=== PATIENT | female | born 1940 | race American Indian/Alaskan Native ===

== ENCOUNTER 2019-06-18 10:57 | Emergency (ER) | payer MEDICARE ==
[2019-06-18] MEDS ORDERED: HALOPERIDOL LACTATE 5 MG/1 ML INJ IM PRN (12:35)
[2019-06-18] MEDS ORDERED: LORazepam 2 MG/ML VIAL IM PRN (12:35)
--- NOTE | 2019-06-18 12:36 | Emergency Department Report ---
<TAMI DODGE - Last Filed: 06/18/19 19:35> ED General Adult HPI - General Chief complaint: Psych Stated complaint: AMS Time Seen by Provider: 06/18/19 12:05 - Related Data Home Medications Medication Instructions Recorded Confirmed Last Taken AtorvaSTATin [Lipitor] 20 mg PO QHS 06/18/19 06/18/19 Unknown Potassium Bicarbonate/Cit AC 20 meq PO QDAY 06/18/19 06/18/19 Unknown [Effer-K 20 Meq] amLODIPine [Norvasc] 10 mg PO DAILY 06/18/19 06/18/19 Unknown glipiZIDE [Glucotrol] 5 mg PO DAILY 06/18/19 06/18/19 Unknown risperiDONE [RisperDAL] 4 mg PO QHS 06/18/19 06/18/19 Unknown Allergies Allergy/AdvReac Type Severity Reaction Status Date / Time No Known Allergies Allergy Unverified 06/18/19 11:55 ED Past Medical Hx - Medications Home Medications: Home Medications Medication Instructions Recorded Confirmed Last Taken Type AtorvaSTATin [Lipitor] 20 mg PO QHS 06/18/19 06/18/19 Unknown History Potassium Bicarbonate/Cit AC 20 meq PO QDAY 06/18/19 06/18/19 Unknown History [Effer-K 20 Meq] amLODIPine [Norvasc] 10 mg PO DAILY 06/18/19 06/18/19 Unknown History glipiZIDE [Glucotrol] 5 mg PO DAILY 06/18/19 06/18/19 Unknown History risperiDONE [RisperDAL] 4 mg PO QHS 06/18/19 06/18/19 Unknown History ED Course - Reevaluation(s) Reevaluation #3: 06/18/19 19:36 Patient has mild dehydration as indicated by the ketones in her urine and high specific gravity. Mild hypokalemia noted treated with by mouth potassium. Mental health evaluation will be Requested since no significant lab or urine abnormality noted. ED Medical Decision Making - Lab Data Result diagrams: 06/18/19 14:32 06/18/19 14:32 ED Disposition Clinical Impression: Psychosis Disposition: [id number]/TX-65 PSY HOSP/PSY UNIT Is pt being admited?: No Does the pt Need Aspirin: No Condition: Stable Referrals: PRIMARY CARE, [Referring] - 3-5 Days <MAURICIO KAUR - Last Filed: 06/20/19 14:00> ED General Adult HPI - General Source: patient, family, EMS ( EMS documentation not available at time of chart dictation ), RN notes reviewed Mode of arrival: Stretcher Limitations: Other (patient is a poor historian, and appears to be psychotic and disorganized) - History of Present Illness Initial comments: Primary care Dr.: Dr Ray Psychiatry: Dr. Tesfaye Past medical history: Diabetes, hypertension and schizophrenia During the entire history and physical examination I am interactive media specialist by ER broadcast technician, Miss Maryann Kim History obtained from patient's daughter, Ms. Lili Stovall; [phone] The patient is brought to the emergency room by EMS and family for psychiatric decompensation. The patient has been off of her medications for 2-3 months. As per her daughter, "she needs to be committed." The patient is not complaining of physical pain. She is not made endorsements of homicidality or suicidality. As per the daughter, there is no history of trauma, vomiting, or loss of consciousness. Patient is a disorganized, psychotic, is a poor historian, cannot describe the qualitative nature of her symptoms, exacerbating, relieving factors, or radiation. Her daughter states that the symptoms are consistent with prior episodes of psychiatric decompensation. Apparently, the patient goes to [facility] on [place], but the daughter does not know all the medications that she takes. -: week(s) Quality: other Consistency: other Improves with: rest Worsens with: other Associated Symptoms: other ED Review of Systems ROS: Stated complaint: AMS Other details as noted in HPI Comment: Unobtainable due to pts medical conditions (psychotic. ros per family) ED Past Medical Hx - Past Medical History Hx Hypertension: Yes Hx Diabetes: Yes Hx Psychiatric Treatment: Yes (Schizophrenia) - Surgical History Past Surgical History?: No - Social History Smoking Status: Never Smoker Substance Use Type: None ED Physical Exam - General Limitations: No Limitations, Other (patient is psychotic and disorganized.) General appearance: anxious, in distress - Head Head exam: Present: atraumatic, normocephalic - Eye Eye exam: Present: normal appearance, EOMI, other (visual acuity intact to fing er counting at a close distance). Absent: nystagmus - ENT ENT exam: Present: normal exam, normal orophraynx, mucous membranes moist, normal external ear exam - Neck Neck exam: Present: normal inspection, full ROM. Absent: tenderness, meningismus - Respiratory Respiratory exam: Present: normal lung sounds bilaterally. Absent: respiratory distress - Cardiovascular Cardiovascular Exam: Present: normal rhythm, tachycardia, normal heart sounds. Absent: systolic murmur, diastolic murmur, rubs, gallop - GI/Abdominal GI/Abdominal exam: Present: soft. Absent: distended, tenderness, guarding, rebound, rigid, pulsatile mass - Extremities Exam Extremities exam: Present: normal inspection, full ROM, other (2+ pulses noted in the bilateral upper and lower extremities. There is no palpable cord. negative Homans sign. Muscular compartments are soft. The pelvis is stable.). Absent: pedal edema, calf tenderness - Back Exam Back exam: Present: normal inspection, full ROM. Absent: tenderness, CVA tenderness (R), CVA tenderness (L), paraspinal tenderness, vertebral tenderness - Neurological Exam Neurological exam: Present: other (there is no facial droop. The tongue is midline. The extraocular movements are intact bilaterally. Speaking in full sentences. Minimal elevation of the base of the tongue. There is 5 out of 5 strength in the bilateral upper and lower extremities, and sensation is intact to light touch in the bilateral upper and lower extremities. Appropriate insight.) - Psychiatric Psychiatric exam: Present: anxious - Skin Skin exam: Present: warm, dry, intact, normal color. Absent: rash ED Course Vital Signs 06/18/19 06/18/19 06/19/19 13:29 19:23 01:47 Temperature 98.6 F 98.4 F 98.5 F Pulse Rate 106 H 81 85 Respiratory 22 16 16 Rate Blood Pressure 154/96 163/86 145/87 [Left] O2 Sat by Pulse 98 97 97 Oximetry 06/19/19 06/19/19 06/19/19 09:06 14:14 20:51 Temperature 97.7 F 98.2 F 97.8 F Pulse Rate 86 92 H 105 H Respiratory 18 18 17 Rate Blood Pressure 143/93 148/83 172/99 [Left] O2 Sat by Pulse 97 98 97 Oximetry 06/19/19 21:17 Temperature Pulse Rate Respiratory 18 Rate Blood Pressure [Left] O2 Sat by Pulse 97 Oximetry - Reevaluation(s) Reevaluation #1: 06/18/19 14:01 Differential diagnosis, including but not limited to: Psychosis, schizophrenia, electrolyte derangement, thyroidectomy derangement, urinary tract infection, medical clearance for psychiatric placement Assessment and plan: 78-year-old female presenting with likely decompensated schizophrenia. She does not have decision-making capacity at this time, and requires emergent medical evaluation Her daughter has given verbal permission for both chemical and physical restraints if necessary. Haloperidol, Ativan, and now Geodon ordered for agitation. There is no history of trauma. The patient has a nonfocal motor exa mination. Her physical examination is otherwise unremarkable at this time. Urinalysis, EKG, screening laboratory studies are pending at this time. We have requested that nursing team contact her pharmacy to obtain her outpatient prescriptions. Family at the bedside. Reevaluation #2: 06/18/19 15:[address] Rene Dodge to [facility] up on labs if no abnormalities, would consider patient medically suitable for psychiatric stabilization/placement/consultation ED Medical Decision Making - Lab Data Result diagrams: 06/18/19 14:32 06/18/19 14:32 Vital Signs 06/18/19 13:29 Temperature 98.6 F Pulse Rate 106 H Respiratory 22 Rate Blood Pressure 154/96 [Left] O2 Sat by Pulse 98 Oximetry - EKG Data -: EKG Interpreted by [facility] - EKG Data When compared to previous EKG there are: previous EKG unavailable 06/18/19 15:06 There is no prior EKG available for comparison. The EKG shows a sinus rhythm, left axis deviation, left anterior fascicular block, QTC prolonged, atrial enlargement, no endorsement of chest pain, the EKG is abnormal, it is not consistent with ST elevation myocardial infarction. Critical care attestation.: If time is entered above; I have spent that time in minutes in the direct care of this critically ill patient, excluding procedure time. ED Disposition Is pt being admited?: No Does the pt Need Aspirin: No
[2019-06-18] MEDS ORDERED: ZIPRASIDONE MESYLATE 20 MG VIAL IM ONE ×2 (13:46→13:51)
[2019-06-18 14:46] LABS: Hematocrit 40.8 % (30.3-42.9); Hemoglobin 13.7 gm/dl (10.1-14.3); Mean Corpuscular HGB Conc 34 % (30-34); Mean Corpuscular Volume 81 fl (79-97); Platelet Count 170 K/mm3 (140-440); Red Blood Count 5.03 M/mm3 (3.65-5.03); Red Cell Distribution Width 15.2 % (13.2-15.2)
[2019-06-18 15:39] LABS: BUN/Creatinine Ratio 18; Blood Urea Nitrogen 18 mg/dL (7-17); Calcium 11.2 mg/dL (8.4-10.2); Hemolysis Index 9
[2019-06-18] MEDS ORDERED: POTASSIUM CHLORIDE ER 20 MEQ TAB PO ONE (17:03)
[2019-06-18 17:29] LABS: Bilirubin,Urine NEG (Negative); Blood,Urine NEG (Negative); Color,Urine Yellow (Yellow); Mucus,Urine 1+ /HPF
[2019-06-18 17:32] LABS: Amphetamine Screen,Urine PRESUMPTIVE NEGATIVE; Benzodiazepines Screen,Urine PRESUMPTIVE NEGATIVE; Cannabinoid Screen,Urine PRESUMPTIVE NEGATIVE; Cocaine Screen,Urine PRESUMPTIVE NEGATIVE; Methadone Screen,Urine PRESUMPTIVE NEGATIVE; Opiate Screen,Urine PRESUMPTIVE NEGATIVE
[2019-06-19] MEDS ORDERED: POTASSIUM CHLORIDE ER 20 MEQ TAB PO ONE (11:29)
[2019-06-19 20:53] VITALS: BP 172/99
== END 2019-06-19 23:15 ==
LOC: EEVIPCON 10:57 → ED 10:57
DX: R41.82 Altered mental status, unspecified (principal); E86.0 Dehydration; I10 Essential (primary) hypertension; E11.9 Type 2 diabetes mellitus without complications; F20.9 Schizophrenia, unspecified; Z79.899 Other long term (current) drug therapy
CPT/HCPCS: 36415; 80048; 80307; 81001; 83735; 84443; 85027; 93005; 93010; 96372; 99285; J1630; J2060; J3486; 80320; G0480